=== PATIENT | female | born 1945 | race Caucasian/White ===

== ENCOUNTER → 2023-10-26 15:06 | Outpatient (REF) | payer BC, SELFPAY | LOC: HWEVLT 15:06 | PROVIDERS: ATTENDING PHYSICIAN Radiology Diagnostic Radiology | DX: I83.893 Varicose veins of bilateral lower extremities with other complications (principal) | CPT/HCPCS: 93970 ==

== ENCOUNTER → 2024-01-26 12:57 | Outpatient (REF) | payer BC, SELFPAY | LOC: HWEVLT 12:57 | PROVIDERS: ATTENDING PHYSICIAN Radiology Vascular & Interventional Radiology | DX: I83.892 Varicose veins of left lower extremity with other complications (principal) | CPT/HCPCS: 36478 ==

== ENCOUNTER → 2024-02-09 11:41 | Outpatient (REF) | payer BC, SELFPAY | LOC: HWEVLT 11:41 | PROVIDERS: ATTENDING PHYSICIAN Radiology Diagnostic Radiology | DX: I83.892 Varicose veins of left lower extremity with other complications (principal) | CPT/HCPCS: 93971 ==

== ENCOUNTER → 2024-05-02 12:59 | Outpatient (REF) | payer BC, SELFPAY | LOC: HWEVLT 12:59 | PROVIDERS: ATTENDING PHYSICIAN Radiology Vascular & Interventional Radiology | DX: I83.892 Varicose veins of left lower extremity with other complications (principal) | CPT/HCPCS: 93971 ==

== ENCOUNTER → 2024-08-17 16:46 | Outpatient (REF) | payer BC, SELFPAY | LOC: RAD 16:46 | PROVIDERS: ATTENDING PHYSICIAN Urology; FAMILY PHYSICIAN Physician Assistant | DX: R31.0 Gross hematuria (principal) | CPT/HCPCS: 74178; Q9967 ==

== ENCOUNTER 2024-08-24 06:15 | Day surgery (SDC) | payer BC, SELFPAY ==
[2024-08-18 08:43] LABS: Hematocrit 43.5 % (37.0-47.0); Hemoglobin 14.3 g/dL (12.0-16.0); Mean Corp Hgb Conc. 32.9 g/dL (33.0-37.0); Mean Corpuscular Hgb 31.6 pg (27.0-31.0); Mean Platelet Volume 10.6 fL (7.4-10.4); Platelet Count 220 10^3/uL (130-400); Red Blood Cell Count 4.53 10^6/uL (4.20-5.40); Red Cell Dist. Width 11.7 % (11.5-14.5); White Blood Cell Count 7.4 10^3/uL (4.8-10.8)
[2024-08-18 14:05] VITALS: BMI 25.0
[2024-08-24] VITALS (9 sets, daily range): BP systolic 141–164; BP diastolic 62–86; BMI 25.0
[2024-08-24] MEDS: CYSVIEW KIT 100 MG INTRAVES (09:32)
[2024-08-24] MEDS: NORMOSOL-R/PLASMALYTE-A 1000 IV (10:19)
[2024-08-24] MEDS: ZOFRAN 4 MG IV (13:30)
== END 2024-08-24 14:51 | disposition home or self-care (01) ==
LOC: SDS 06:15
PROVIDERS: ATTENDING PHYSICIAN Urology; FAMILY PHYSICIAN Physician Assistant; REFERRING PHYSICIAN Internal Medicine Cardiovascular Disease
DX: C67.1 Malignant neoplasm of dome of bladder (principal); C67.2 Malignant neoplasm of lateral wall of bladder; N30.80 Other cystitis without hematuria; N99.71 Accidental puncture and laceration of a genitourinary system organ or structure during a genitourinary system procedure; Y83.8 Other surgical procedures as the cause of abnormal reaction of the patient, or of later complication, without mention of misadventure at the time of the procedure
CPT/HCPCS: 52234; C9738; 88305; 88307; 36415; 85027; 93005; A9589

== ENCOUNTER 2024-10-04 04:25 | Observation (INO) | payer BC, SELFPAY ==
[2024-10-03 23:17] VITALS: BP 154/90
[2024-10-03 23:54] VITALS: BP 157/79; BMI 24.3
[2024-10-04] VITALS: BP 153/84
[2024-10-04 00:13] LABS: % Basophils 0.5 % (0-2); % Eosinophils 0.7 % (0-6); % Immature Granulocytes 0.2 % (0-0.5); % Lymphocytes 30.4 % (20.5-51.1); % Neutrophils 52.2 % (42.2-75.2); Absolute Lymphocytes 1.8 10^3/uL (1.2-3.4); Absolute Monocytes 0.9 10^3/uL (0.1-0.6); Absolute Neutrophils 3.1 10^3/uL (1.4-6.5); Hematocrit 40.7 % (37.0-47.0); Hemoglobin 13.6 g/dL (12.0-16.0); Mean Corp Hgb Conc. 33.4 g/dL (33.0-37.0); Mean Corpuscular Hgb 31.4 pg (27.0-31.0); Mean Platelet Volume 9.9 fL (7.4-10.4); Nucleated Red Blood Cells % 0 %; Platelet Count 193 10^3/uL (130-400); Red Blood Cell Count 4.33 10^6/uL (4.20-5.40); Red Cell Dist. Width 11.7 % (11.5-14.5); White Blood Cell Count 5.8 10^3/uL (4.8-10.8)
[2024-10-04 00:40] LABS: Troponin I < 0.012 ng/ml
[2024-10-04 00:44] LABS: ALT (SGPT) 22 U/L (0-35); AST (SGOT) 32 U/L (14-36); Albumin 4.1 g/dl (3.5-5.0); Alkaline Phosphatase 98 U/L (38-126); Blood Urea Nitrogen 23 mg/dl (7-17); Calcium 10.8 mg/dl (8.4-10.2); Carbon Dioxide 27 mmol/L (22-30); Chloride 105 mmol/L (98-107); Estimated Creatinine Clearance 53 ml/min; Glucose 103 mg/dl (70-99); Lipase 279 U/L (23-300); Potassium 3.5 mmol/L (3.5-5.1); Sodium 140 mmol/L (135-145); Total Bilirubin 0.7 mg/dl (0.2-1.3); Total Protein 6.5 g/dl (6.3-8.2); eGFR > 60.00
--- NOTE | 2024-10-04 00:59 | ED.GENMED ---
History of Present Illness
General
Chief Complaint: Cardiac Symptoms
Time Seen by Provider: 10/04/24 00:58
Past History
Past History
ED Past Medical History: Arrthythmia and HTN
ED Past Surgical History: None
Social History
Personal:
Living: with family
Course
Orders/Labs/Results
Orders:
Orders
10/03/24 23:06
ECG [Electrocardiogram (*1)] Urgent
Reason for Study: Chest Pain
EKG- Treatment ONCE
10/03/24 23:55
Cardiac Monitoring- Treatment ONCE
IV Insert/Care/Rem.- Treatment PRN
Complete Blood Count/With Diff Urgent
Comprehensive Metabolic Panel Urgent
Lipase Urgent
Troponin I Urgent
O2 Therapy [RESP] Urgent
Titrate/Wean O2 to maintain O2 sat greater than (%): 90
Special Instructions: Maintain sats >/=90%
Pulse Ox/spot Check [RESP] Urgent
Quantity: 1
Special Instructions: ON ROOM AIR
10/04/24 00:00
CR Chest - 2 Views Urgent
Reason For Exam: chest pain
Abnormal Lab Results
10/04/24
00:04
MCH 31.4 H pg
(27.0-31.0)
Absolute Monos (auto) 0.9 H 10^3/uL
(0.1-0.6)
Monocytes % 16.0 H %
(1.7-9.3)
BUN 23 H mg/dl
(7-17)
Glucose 103 H mg/dl
(70-99)
Calcium 10.8 H mg/dl
(8.4-10.2)
10/04/24 00:04
10/04/24 00:04
Vital Signs
Initial and Last Documented VS:
Initial Vital Signs
Temp Pulse Resp BP Pulse Ox
97.8 F 70 20 154/90 100
10/03/24 23:17 10/03/24 23:17 10/03/24 23:17 10/03/24 23:17 10/03/24 23:17
Last Documented Vital Signs
Temp Pulse Resp BP Pulse Ox
97.8 F 67 13 153/84 97
10/03/24 23:17 10/04/24 00:00 10/04/24 00:00 10/04/24 00:00 10/04/24 00:00
*Radiology
Radiology exam reviewed: preliminary read by ED provider (neg)
*Pulse Oximetry
Patient hypoxic: no
*EKG
Interpreted by ED Provider?: Yes
Interpretation: normal
Comparison EKG: no changes
Heart Rate: 67
Rate: normal
Rhythm: sinus
[place]: normal axis
Interval: normal interval
QRS Pattern: normal QRS
Ischemia: no ischemia
ED Attending Note
-
Portions of this chart may have been created with voice recognition software.� Occasional wrong word or��sound alike� substitutions may have occurred due to the inherent limitations of voice recognition software.
Discharge Plan
Departure
Prescriptions:
No Action
doxycycline hyclate 100 mg Capsule
100 mg PO DAILY
atorvastatin 20 mg Tablet
20 mg PO DAILY
calcium carbonate [Calcium 600] 600 mg calcium (1,500 mg) Tablet
600 mg PO BID
Ocuvite Tablet
1 tab PO BID
metoprolol tartrate 25 mg Tablet
25 mg PO PRN PRN (Reason: Afib)
hydrochlorothiazide 12.5 mg Tablet
12.5 mg PO DAILY
cholecalciferol (vitamin D3) [Vitamin D3] 50 mcg (2,000 unit) Tablet
50 mcg PO BID
Eliquis 5 mg Tablet
5 mg PO BID
Joint Health 40-10-5-3.3 mg Tablet
1 tab PO DAILY
Referrals:
Susan Jules PA-C [Family Provider] -
Interventions
Interventions:
*Risk Screen - Suicide Last Done: 10/03/24 23:17
*General Assessment Last Done: 10/03/24 23:53
*Neglect/Abuse Screening Last Done: 10/03/24 23:17
*ED- Fall Risk Assessment Last Done: 10/03/24 23:52
*ED COVID-19 Vaccine History Last Done: 10/03/24 23:52
ED- Pulmonary Assessment Last Done: 10/04/24 00:11
ED- Cardiac Assessment Last Done: 10/04/24 00:11
WQ-Jmwhkg-Gbxjwtwfhx Assessment Last Done: 10/04/24 00:11
Discharge Date and Time
Print Language: SRI LANKAN
[2024-10-04 02:21] VITALS: BP 187/80
--- NOTE | 2024-10-04 04:31 | HPS.HSE ---
Family Physician
-
Family Physician: Susan Jules
Chief Complaint
-
chest pain
History of Present Illness
This is 78-year-old female was past medical history significant for atrial fibrillation (proximal) on anticoagulation with Eliquis, hypertension, hyperlipidemia, recent bladder cystoscopy with resection of polyps, remote history of skin melanoma,
presenting to the emergency department with episode of chest pain.
Patient reports he has had intermittent chest pain since Wednesday. Initially she reported chest pressure that is lasting a few minutes and then resolving without any associated exertional nausea vomiting or diaphoresis. Today she was able to
exercise 15 minutes on a treadmill and then about 2 hours later she noted chest pain that was substernal and radiating across her chest bilaterally. There was no radiation to the jaws neck or shoulders. There was no radiation to the back. She
felt like this may be related to indigestion and she took some Tums without any relief. She reports the pain that was a 6 out of 10 and it has been persistent for several hours now. She denies any shortness of breath. She denies dyspnea on
exertion. She denies having any palpitations. Patient denies any recent cough fevers or chills. She has no known sick contacts and denies any recent travel. She denies any ankle swelling, calf tenderness.
On arrival in the emergency department she was afebrile, blood pressure was 153/84 with a pulse of 67 and oxygen saturation of 97% on room air. ECG with sinus rhythm and no acute ischemia. X-ray was negative for any acute intrathoracic process.
Troponin was less than 0.012
She has no leukocytosis, normal hemoglobin and platelet counts. Electrolytes BUN/creatinine were all in the normal range. LFTs were normal. Lipase was normal.
Medical History
Past Medical History
Past Medical History: Reports Arrhythmia (Proximal atrial fibrillation), HTN and Hypercholesterolemia
Past Surgical History: Reports Urological (Cystoscopy with polyp resection)
Social History
Tobacco: Non-smoker
Alcohol: Occasional
Drug: None
Personal:
Living: With Family
Employment: Retired
Family History
Family History: Not pertinent
Allergies / Home Medications
Allergies reflects when Allergies were last updated in [facility].
Home Medications with original date entered in [facility]
Allergy/Medication List:
Allergies
Allergy/AdvReac Type Severity Reaction Status Date / Time
No Known Allergies Allergy Verified 10/03/24 23:20
Home Medications
apixaban 5 mg tablet (Eliquis) 5 mg PO BID 08/17/24
atorvastatin 20 mg tablet 20 mg PO DAILY 08/17/24
calcium carbonate (Calcium 600) 600 mg PO BID 08/17/24
cartilage 40 mg-collagen II 10 mg-boron 5 mg-hyaluronate 3.3 mg tablet ([place]) 1 tab PO DAILY 08/17/24
cholecalciferol (vitamin D3) 50 mcg (2,000 unit) tablet (Vitamin D3) 50 mcg PO BID 08/17/24
doxycycline hyclate 100 mg capsule 100 mg PO DAILY 08/17/24
hydrochlorothiazide 12.5 mg tablet 12.5 mg PO DAILY 08/17/24
metoprolol tartrate 25 mg tablet 25 mg PO PRN PRN Afib 08/17/24
vitamin A-vitamin C-vit E-min tablet 1 tab PO BID 08/17/24
Review of Systems
-
History Source: Patient
Constitutional: Reports No Symptoms
EENT: Reports No Symptoms
Respiratory: Reports No Symptoms
Cardiac: Reports Chest Pain
Abdomen/GI: Reports No Symptoms
: Reports No Symptoms
Musculoskeletal: Reports No Symptoms
Skin: Reports No Symptoms
Neurological: Reports No Symptoms
Endocrine: Reports No Symptoms
Hematologic/Lymphatic: Reports No Symptoms
Psych: Reports No Symptoms
Physical Exam
Vital Signs
Vital Signs
Temp Pulse Resp BP Pulse Ox
97.8 F 69 21 187/80 97
10/03/24 23:17 10/04/24 02:21 10/04/24 02:21 10/04/24 02:21 10/04/24 02:21
Physical Exam
General: Well Developed, Well Nourished, No Apparent Distress and Comfortable
HEENT: NormoCephalic, Anicteric, Moist mucous membranes and Atraumatic
Respiratory: Clear
Cardiac: S1/S2 and Regular Rhythm; No Murmur, Rub, Gallop, Peripheral Edema or JVD
Breast: Deferred by me
GI: Soft, Non Tender, Non Distended and Normal Bowel Sounds
Rectal: Deferred by Provider
Genito-urinary: Deferred by me
Musculoskeletal: No Clubbing, No Cyanosis and No Edema
Skin: Warm and Dry
Neuro: AO x 3 and Nonfocal/grossly intact
Hematologic/Lymphatic: No Lymphadenopathy
Psych: Calm
Laboratory Results
-
10/04/24 00:04
10/04/24 00:04
Laboratory Results
Total Bilirubin 0.7 mg/dl (0.2-1.3) 10/04/24 00:04
AST 32 U/L (14-36) 10/04/24 00:04
ALT 22 U/L (0-35) 10/04/24 00:04
Alkaline Phosphatase 98 U/L (38-126) 10/04/24 00:04
Troponin I < 0.012 ng/ml 10/04/24 00:04
Lipase 279 U/L (23-300) 10/04/24 00:04
Data Reviewed
-
Medical Tests (Nuc Med, Echo, EKG etc): Image Personally Visualized and interpreted
Lab Data: Labs Reviewed by me
Old Records: Reviewed
Impression/Plan
-
IMPRESSION:
78-year-old past medical history of proximal atrial fibrillation on anticoagulation with Eliquis who presents to the emergency department with persistent substernal chest pain radiating across the chest bilaterally without associated vomiting
diaphoresis or nausea. Not associated with exertion and no known exacerbating or relieving factors. Suspect may be related to dyspepsia/GERD however cannot rule out ischemic process. Initial troponin is negative. Initial ECG is negative. Chest
x-ray is clear. Patient is compliant with anticoagulation.
Plan
Chest pain�atypical
�Admit to telemetry observation
�Cycle cardiac enzymes
�As needed nitroglycerin
�continue apixaban, continue statin,
�echocardiogram
�Lipid panel A1c
�Cardiology consult (patient of Dr. Leo)
Atrial fibrillation�currently in sinus rhythm
� Continue anticoagulation with Eliquis
� Patient is only on as needed rate control, will monitor for now
DVT prophylaxis�on apixaban
CODE STATUS�DNR
[2024-10-04 04:33] LABS: Troponin I < 0.012 ng/ml
[2024-10-04 04:35] VITALS: BP 163/83
[2024-10-04 04:36] VITALS: BMI 23.7
--- NOTE | 2024-10-04 04:37 | DOWNTIME ---
There was a [employer] Client [employer]cher Downtime on 10/04/2024 from 0100 to 10/05/2023 at 0420 . Downtime documentation of patient's care, including medication administrations, has been reconciled in the electronic record per guidelines. Refer to the
patient's paper chart under the miscellaneous tab to see printed paper medication records and downtime forms.
[2024-10-04 06:35] LABS: Blood Urea Nitrogen 19 mg/dl (7-17); Carbon Dioxide 28 mmol/L (22-30); Chloride 102 mmol/L (98-107); Estimated Creatinine Clearance 53 ml/min; Glucose 99 mg/dl (70-99); HDL Cholesterol 63 mg/dl; LDL Cholesterol, Calculated 29 mg/dl; Potassium 3.9 mmol/L (3.5-5.1); Sodium 139 mmol/L (135-145); Total Cholesterol 112 mg/dl (50-199); Triglyceride 103 mg/dl (10-149); Very Low Density Lipoprotein 20 mg/dl (0-30); eGFR > 60.00
[2024-10-04 06:47] LABS: Troponin I < 0.012 ng/ml
[2024-10-04 07:05] VITALS: BP 151/75
--- NOTE | 2024-10-04 07:50 | CON.CAR ---
Addendum entered and electronically signed by Mookie Polanco MD 10/04/24 14:22:
I saw and examined the patient.
The Central Supply Technician's note was reviewed and I agree with the note.
Comment: Briefly, 78-year-old woman past medical history of paroxysmal atrial fibrillation, PVCs and hyperlipidemia who presents after several days of waxing and waning chest discomfort. She describes sharp chest pain which seems to be worse after
eating that has been ongoing for approximately 5 days at this point. Has been able to workout on the treadmill on a daily basis without symptoms. Pain does not seem to be exertional by her description.
Serially undetectable troponin
ECG is not overtly ischemic appearing
Transthoracic echocardiogram with normal biventricular size and function and no significant valvular pathology
Pharmacologic nuclear stress test with no evidence of ischemia or prior infarct
Patient is stable for discharge from my perspective
Already has follow-up scheduled with primary stringed instrument tuner, CELIA Leo, for later this week
Original Note:
Consultation
Consultation Request
Date/Time Consultation Performed: 10/04/24
Requesting Provider: Dr. Nevarez
Performing Provider: Shena Gomez PA-C for Dr. Polanoc
Reason for Consultation: CP
Medical History
-
Chief Complaint: CP
History of Present Illness:
Patient is a 78-year-old female with past medical history of paroxysmal atrial fibrillation on Eliquis, hypertension, hypercholesterolemia, PVCs who underwent bladder surgery 08/2024 for polyps. She reports during surgery her 'bladder wall was
nicked', and this has resulted in residual burning discomfort and urinary issues. She reports she had a catheter for 10 days, and then had multiple courses of antibiotics as well as oxybutynin chloride for bladder spasms. She reports started
Wednesday after dinner she noticed chest pressure and feelings of indigestion which since that time have been intermittently occurring. She states the episodes appear to be random and it feels as though she needs to belch however when she does, does
not get complete relief. She does exercise on the treadmill daily and does daily stretches and has not had issues with completing her normal levels of activity. She reports she stopped taking her urologic medicines on Wednesday without improvement.
She reports once she took tums with some improvement however then several hours later it returned. Trops negative. Cardiology consulted for evaluation. Remains with some discomfort at present. She had low risk stress test and echo in 2022.
PMH:
PAF on eliquis
HTN
HLD
PVCs
bladder polyps s/p resection 08/2024
OA
Past Medical History
Past Medical History: Other (in HPI)
Social History
Tobacco: Non-Smoker
Alcohol: None
Personal:
Living: With Family
Employment: Retired
Family History
Family History: Early CAD (in father) and Other (CVA in father)
Allergies / Home Medications
Allergy/AdvReac Type Severity Reaction Status Date / Time
No Known Allergies Allergy Verified 10/03/24 23:20
�Medication �Instructions �Recorded �Confirmed �Type
apixaban 5 mg tablet (Eliquis) 5 mg PO BID 08/17/24 10/04/24 History
atorvastatin 20 mg tablet 20 mg PO DAILY 08/17/24 10/04/24 History
calcium carbonate (Calcium 600) 600 mg PO BID 08/17/24 10/04/24 History
cartilage 40 mg-collagen II 10 1 tab PO DAILY 08/17/24 10/04/24 History
mg-boron 5 mg-hyaluronate 3.3 mg
tablet (Joint Health)
cholecalciferol (vitamin D3) 50 50 mcg PO BID 08/17/24 10/04/24 History
mcg (2,000 unit) tablet (Vitamin
D3)
doxycycline hyclate 100 mg capsule 100 mg PO DAILY 08/17/24 10/04/24 History
hydrochlorothiazide 12.5 mg tablet 12.5 mg PO DAILY 08/17/24 10/04/24 History
metoprolol tartrate 25 mg tablet 25 mg PO PRN PRN Afib 08/17/24 10/04/24 History
vitamin A-vitamin C-vit E-min 1 tab PO BID 08/17/24 10/04/24 History
tablet
Review of Systems
-
History Source: Patient
All other systems: Negative unless noted
Physical Exam
Vital Signs
Temp Pulse Resp BP Pulse Ox
98.0 F 67 20 163/83 98
10/04/24 04:35 10/04/24 04:35 10/04/24 04:35 10/04/24 04:35 10/04/24 04:35
Lab Results
10/04/24 00:04
10/04/24 05:48
Troponin I < 0.012 ng/ml 10/04/24 05:48
Physical Exam
General: No Apparent Distress and Comfortable
HEENT: Normocephalic, Anicteric and Moist Mucous Membranes
Respiratory: Clear and Non Labored Respirations
Cardiac: S1/S2, Regular Rhythm and Murmur
GI: Soft and Non Tender
Musculoskeletal: No Clubbing, No Cyanosis and No Edema
Skin: Warm and Dry
Neuro: AO x 3
Impression / Plan
-
Primary Animal Chiropractor: Dr. CELIA Loe
Assessment:
Presentation with CP
Serially negative troponins
PAF on eliquis
HTN
HLD
PVCs
bladder polyps s/p resection 08/2024
OA
ECHO 10/29/22: EF 55-60%, mild TR, PAP 25-30mmHg
Stress echo 10/29/22: low risk test at 7 METS
Plan:
-Patient presents with intermittent chest discomfort since this past Wednesday evening 09/29.
-EKG NSR
-CXR without acute processes
-troponins serially negative
-last echo and stress test from 10/2022 as above
-could consider for lexiscan stress test today, NPO for now, however symptoms appear atypical for cardiac etiology
-consider trial of PPI/GI cocktail. of note, she was on multiple courses of abx recently. she has noted history of GERD however is not on medication for this as OP
-will arrange OP cardiac follow up
Data Reviewed
-
EKG: Tracing Personally Visualized and interpreted
Radiology: Report Reviewed by me
Medical Tests (Nuc Med, Echo etc): Report Reviewed by me
Labs: Labs Reviewed by me
Old Records: Reviewed
[2024-10-04] MEDS: ELIQUIS 5 MG PO (08:08)
[2024-10-04] MEDS: VIBRAMYCIN 100 MG PO (08:08)
[2024-10-04] MEDS: MAALOX 30 ML PO ×2 (08:08→17:08)
[2024-10-04] MEDS: LIPITOR 20 MG PO (08:09)
[2024-10-04] MEDS: ORETIC 12.5 MG PO (08:09)
[2024-10-04 09:46] LABS: Troponin I < 0.012 ng/ml
[2024-10-04 10:00] LABS: Glycohemoglobin (HgbA1c) 5.6 % (4.0-5.6)
[2024-10-04] MEDS: LEXISCAN 0.4 MG IV (12:10)
--- NOTE | 2024-10-04 13:59 | CM ---
Addendum entered by Dalila Covarrubias 10/04/24 14:48:
[facility] form explained & signed.
Original Note:
Patient seen at bedside
Echo & stress test today
IA completed
Patient lives in split level home with spouse, 0 steps through garage, flight stairs bedroom
PLOF: Independent does not use assistive device
DME: [facility]
Denies VN, has had outpatient PT in past
PCP: Susan Jules
Pharmacy: [address], [place]
PLAN: home, no needs
to transport
--- NOTE | 2024-10-04 14:02 | W.PN.HOSP.TC ---
Today's Communication/Plan
-
Discharge
Assessment / Plan
Assessment / Plan
Gen-AAOx3, NAD
HEENT-NC, AT, anicteric, clear oral mm
Neck-supple
CV-reg, no M, +S1/S2
Lungs-clear B/L
Abd-soft, NT, ND
Ext-no edema
Musculoskeletal-no cyanosis, clubbing
Skin-warm and dry
Neuro-grossly non-focal
Psych-calm, cooperative
Chest discomfort -ACS unlikely, [place] ruled out. Suspect GI related, possible acid reflux. She does exercise on a treadmill twice daily without exertional chest pain or shortness of breath.
Echocardiogram reviewed, LVEF 55%, normal diastolic function, normal RV size and function, mild MR, mild TR.
Nuclear stress test reviewed, no perfusion defects.
Troponins negative.
Reviewed with cardiology, plan to discharge today with outpatient follow-up recommended.
Paroxysmal atrial fibrillation -continue Eliquis.
Hyperlipidemia -atorvastatin.
Essential hypertension
PVCs
Bladder polyps -resected in August.
Chronic rosacea -on long-term doxycycline.
DNR
Dispo -stable for discharge home today. Follow-up with PCP and cardiology.
32 minutes spent in discharge process.
Anticipated Discharge: Today
Subjective/Interval History
-
Date of Service: October 04, 2024
Patient seen and examined. No complaints.
Objective Data
-
Labs:
Laboratory Results
10/04/24
05:48
Sodium 139
Potassium 3.9
Chloride 102
Carbon Dioxide 28
BUN 19 H
Creatinine 0.8
Glucose 99
Calcium 10.0
Vital Signs:
Vital Signs
Temp Pulse Resp BP Pulse Ox
98.0 F 53 14 151/75 98
10/04/24 07:05 03/19/25 07:05 10/04/24 07:05 10/04/24 07:05 10/04/24 09:52
Review of Systems
-
History Source: Patient
All other systems: Reviewed and negative
--- NOTE | 2024-10-04 14:10 | W.DS.TRANS ---
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
-
Discharge Instructions:
Discharge Diagnosis/Procedures Chest pressure
Diet Low Fat,Low Cholesterol
Activity As tolerated
Driving Restrictions As prior to admission
Bathing Restrictions None
Instructions:
Stand-Alone Forms:
Changes to Home Medications: No
Discharge Medications:
DC Medications w/original date entered in [facility]
apixaban 5 mg tablet (Eliquis) 5 mg PO BID 08/17/24
atorvastatin 20 mg tablet 20 mg PO DAILY 08/17/24
calcium carbonate (Calcium 600) 600 mg PO BID 08/17/24
cartilage 40 mg-collagen II 10 mg-boron 5 mg-hyaluronate 3.3 mg tablet ([place]) 1 tab PO DAILY 08/17/24
cholecalciferol (vitamin D3) 50 mcg (2,000 unit) tablet (Vitamin D3) 50 mcg PO BID 08/17/24
doxycycline hyclate 100 mg capsule 100 mg PO DAILY 08/17/24
hydrochlorothiazide 12.5 mg tablet 12.5 mg PO DAILY 08/17/24
metoprolol tartrate 25 mg tablet 25 mg PO PRN PRN Afib 08/17/24
vitamin A-vitamin C-vit E-min tablet 1 tab PO BID 08/17/24
pantoprazole 40 mg tablet,delayed release (Protonix) 40 mg PO DAILY #30 tabs 10/04/24
Home Medication Changes
Pending Results: No
[2024-10-04 15:05] VITALS: BP 135/81
[2024-10-05 18:58] LABS: Hepatitis C Antibody Negative (Negative)
== END 2024-10-04 18:28 | disposition home or self-care (01) ==
LOC: 2 NORTH 04:25
PROVIDERS: Student in an Organized Health Care Education/Training Program; ADMITTING PHYSICIAN Internal Medicine; ATTENDING PHYSICIAN Hospitalist; CONSULT PHYSICIAN Internal Medicine Cardiovascular Disease; EMERGENCY PHYSICIAN Emergency Medicine; FAMILY PHYSICIAN Physician Assistant
DX: R07.9 Chest pain, unspecified (principal); Z01.810 Encounter for preprocedural cardiovascular examination; R07.2 Precordial pain; Z79.01 Long term (current) use of anticoagulants; I10 Essential (primary) hypertension; Z85.820 Personal history of malignant melanoma of skin; Z66 Do not resuscitate; I48.0 Paroxysmal atrial fibrillation; I49.3 Ventricular premature depolarization; Z79.2 Long term (current) use of antibiotics; L71.9 Rosacea, unspecified; I08.1 Rheumatic disorders of both mitral and tricuspid valves; I25.10 Atherosclerotic heart disease of native coronary artery without angina pectoris; M19.90 Unspecified osteoarthritis, unspecified site; Z82.49 Family history of ischemic heart disease and other diseases of the circulatory system
CPT/HCPCS: 71046; 78452; 80048; 80053; 80061; 83036; 83690; 84484; 85025; 86803; 93005; 93017; 93306; 99285; A9500; G0378; J2785

== ENCOUNTER 2024-10-17 20:30 | Emergency (ER) | payer BC, SELFPAY ==
[2024-10-17 20:36] VITALS: BP 182/95
--- NOTE | 2024-10-17 20:45 | ED.GENMED ---
History of Present Illness
General
Chief Complaint: Catheter/Tube Problem
Time Seen by Provider: 10/17/24 20:45
History of Present Illness
History of Present Illness:
TIME OF INITIAL ENCOUNTER:
HPI: The patient presents due to concerns with her Moser catheter. She had a new Moser catheter placed by Dr. Lopez today during cystoscopy. 2 months ago, she was found to have lesions that are concerning for malignancy in the bladder. At that
time she required Moser catheter for about 10 days. She has intermittently had bladder spasms.
EXAM:
GENERAL: Well appearing in no distress, appears very comfortable
HEENT: Moist oral mucosa
ABDOMEN: Soft with no peritoneal signs, no tenderness, Moser catheter draining orange urine (she is on Pyridium)
NEUROLOGIC: Excellent strength all extremities, no coordination deficits
PSYCHIATRIC: Appropriate mental status, normal insight and judgement
EXTREMITIES: Nontender, no edema, moves all extremities equally
SKIN: No rash, no lesions
NUMBER AND COMPLEXITY OF PROBLEMS ADDRESSED AT THE ENCOUNTER
� Chronic conditions affecting care: Bladder lesions, A-fib on Eliquis, high blood pressure
� Acute Exacerbation and/or Progression of Chronic Illness: This is an acute problem
� Differential Diagnosis includes: Moser catheter malfunction, obstructing hematuria
AMOUNT AND/OR COMPLEXITY OF DATA TO BE REVIEWED AND ANALYZED
� I performed an independent evaluation of and my interpretation is:
EKG:
CT:
X-rays:
Laboratory Studies:
Other:
� Review of other/old records: The patient was seen here with chest discomfort a few weeks ago
� Clinical information was obtained by an independent historian: I spoke to at bedside
� Prescriptions/Medications Considered but not given:
� Further testing considered but not performed: No clear indication for lab work
RISK OF COMPLICATIONS AND/OR MORBIDITY OR MORTALITY OF PATIENT MANAGEMENT
� Social determinants of health affecting care:
� Discussion with other providers:
� Escalation of care including admission/observation vs risk of discharge considered: The charge nurse had initially told me that Dr. Adams called in indicating that he wanted us to change to either 16 or 18 [place] Moser
catheter. This was performed by the ER nurse in 1 attempt without any difficulty. She is to follow-up with urology as she still has some bladder spasm but has failed several medications in the past.
ANY OTHER UPDATES:
Past History
Past History
ED Past Medical History: Arrthythmia and HTN
ED Past Surgical History: Tonsilectomy, Urological and Other (Melanoma)
Social History
Personal:
Living: with family
Phy Exam
Physical Exam
Physical Exam:
See HPI
Course
Vital Signs
Initial and Last Documented VS:
Initial Vital Signs
Temp Pulse Resp BP Pulse Ox
37.1 C 90 17 182/95 99
10/17/24 20:36 10/17/24 20:36 10/17/24 20:36 10/17/24 20:36 10/17/24 20:36
Last Documented Vital Signs
Temp Pulse Resp BP Pulse Ox
37.1 C 90 17 182/95 99
10/17/24 20:36 10/17/24 20:36 10/17/24 20:36 10/17/24 20:36 10/17/24 20:36
*Critical Care Note
Total Time (30-74mins, 75-104mins- exclusive of procedures): Not Applicable
ED Attending Note
-
Portions of this chart may have been created with voice recognition software.� Occasional wrong word or��sound alike� substitutions may have occurred due to the inherent limitations of voice recognition software.
Discharge Plan
Departure
Patient Disposition: Home (Routine Discharge)
Date of Disposition: 10/17/24
Time of Disposition: 21:12
Patient with high blood pressure during this ER visit?: Yes
Discharge Problem:
Malfunction of Moser catheter
Instructions: How to Care for Your Moser Catheter, BLOOD PRESSURE
Prescriptions:
No Action
doxycycline hyclate 100 mg Capsule
100 mg PO DAILY
atorvastatin 20 mg Tablet
20 mg PO DAILY
calcium carbonate [Calcium 600] 600 mg calcium (1,500 mg) Tablet
600 mg PO BID
vitamin A-vitamin C-vit E-min Tablet
1 tab PO BID
metoprolol tartrate 25 mg Tablet
25 mg PO PRN PRN (Reason: Afib)
hydrochlorothiazide 12.5 mg Tablet
12.5 mg PO DAILY
cholecalciferol (vitamin D3) [Vitamin D3] 50 mcg (2,000 unit) Tablet
50 mcg PO BID
Eliquis 5 mg Tablet
5 mg PO BID
[facility] 40-10-5-3.3 mg Tablet
1 tab PO DAILY
pantoprazole [Protonix] 40 mg tablet,delayed release (DR/EC)
40 mg PO DAILY Qty: 30 0RF
Referrals:
Jaswinder Adams MD [Active] - Keep scheduled appt
UNKNOWN - PT DOES,NOT KNOW [Family Provider] -
Activity Restrictions/Additional Instructions:
We placed a new 18 [place] Moser catheter. Please follow-up with your urologist. Return here if worse or other concerns.
Interventions
Interventions:
*Risk Screen - Suicide Last Done: 10/17/24 20:37
*General Assessment Last Done: 10/17/24 20:37
*Neglect/Abuse Screening Last Done: 10/17/24 20:37
*ED COVID-19 Vaccine History Last Done: 10/17/24 20:37
Discharge Date and Time
Print Language: PORTUGUESE
[2024-10-17 21:17] VITALS: BMI 24.8
[2024-10-17 21:27] VITALS: BP 126/65
[2024-10-17 21:28] VITALS: BP 126/65
== END 2024-10-17 21:27 | disposition home or self-care (01) ==
LOC: EMR 20:30
PROVIDERS: EMERGENCY PHYSICIAN Emergency Medicine
DX: Z46.6 Encounter for fitting and adjustment of urinary device (principal); N32.89 Other specified disorders of bladder; I10 Essential (primary) hypertension; I48.91 Unspecified atrial fibrillation; Z79.01 Long term (current) use of anticoagulants
CPT/HCPCS: 51702; 99283

== ENCOUNTER 2024-10-22 01:29 | Emergency (ER) | payer BC, SELFPAY ==
[2024-10-22 01:45] VITALS: BP 183/71
[2024-10-22 02:19] VITALS: BMI 23.6
--- NOTE | 2024-10-22 02:25 | ED.GENMED ---
History of Present Illness
General
Chief Complaint: Catheter/Tube Problem
Source: patient
Exam Limitations: none
Time Seen by Provider: 10/22/24 02:08
History of Present Illness
History of Present Illness:
See MDM
Past History
Past History
ED Past Medical History: Arrthythmia and HTN
ED Past Surgical History: Tonsilectomy, Urological and Other (Melanoma)
Social History
Personal:
Living: with family
Phy Exam
Physical Exam
Physical Exam:
See MDM
Course
Vital Signs
Initial and Last Documented VS:
Initial Vital Signs
Temp Pulse BP Pulse Ox
97.9 F 74 183/71 98
10/22/24 01:45 10/22/24 01:45 10/22/24 01:45 10/22/24 01:45
Last Documented Vital Signs
Temp Pulse BP Pulse Ox
97.9 F 74 110/56 95
10/22/24 01:45 10/22/24 01:45 10/22/24 02:48 10/22/24 02:24
MDM/Problems Addressed
Differential Diagnosis Includes:
HPI and MDM Narrative:
78-year-old female presenting with bladder spasms. Patient recently had a catheter placed earlier in the week. She follows with urology. She recently had polyps removed. On follow-up cystoscopy, she was found to have some sort of calcifications
in her bladder, per patient. The catheter was placed to 'relax the bladder'. Patient states that the bladder spasms have worsened and she is noticing urine coming out around the catheter site. She was on bladder spasm medicine in the past but did
not like the side effects. She was concerned mostly about the constipation
Physical exam
General: Well appearing and non-toxic
HEENT: protecting airway
Neck: appears supple
CV: No evidence of cyanosis
Resp: No accessory muscle use
Abd: Non-distended. Soft and nontender. Moser catheter site clean and intact
Extremities: No deformities
Neuro: alert
Psych: Normal affect
Skin: Intact
Problems Addressed including Acute and Chronic Conditions affecting care:
1. Bladder spasm
Acuity: acute
Prognosis: stable
Details: We discussed going back on her bladder spasm medication and starting to take a stool softener and intermittent MiraLAX to counteract the constipation
Updates
The balloon on the catheter was deflated and filled back up. The cath was readjusted and flushed. There was removal of sediment and small clots and the catheter bag started draining again
Differential Diagnosis (but not limited to): Bladder spasm, clogged catheter
Testing considered: Urinalysis
Drug therapy (if applicable): OTC meds, please see d/c instruction regarding Rx drugs
Amount and/or Complexity of Data Reviewed
Clinical info obtained from: Patient
External data reviewed: N/A
Labs I independently reviewed (but not limited to): N/A
Radiology: N/A
Pulse Ox: not hypoxic
EKG independently reviewed: N/A
Mortar Mixer: N/A
Critical Care: N/A
Risk of Complication:
Social Determinants of health: Good social support
Discussed with other providers: N/A
Escalation of Care includes Admit/Obs: After being observed in the Emergency Department, pt stable for discharge.
Occasional wrong word or 'sound a like' substitutions may have occurred due to the inherent limitations of voice recognition software. Read the chart carefully and recognize, using context, where substitutions have occurred.
*Critical Care Note
Total Time (30-74mins, 75-104mins- exclusive of procedures): Not Applicable
ED Attending Note
-
Portions of this chart may have been created with voice recognition software.� Occasional wrong word or��sound alike� substitutions may have occurred due to the inherent limitations of voice recognition software.
Discharge Plan
Departure
Patient Disposition: Home (Routine Discharge)
Date of Disposition: 10/22/24
Time of Disposition: 03:29
Patient with high blood pressure during this ER visit?: No
Discharge Problem:
Bladder spasms
Prescriptions:
No Action
doxycycline hyclate 100 mg Capsule
100 mg PO DAILY
atorvastatin 20 mg Tablet
20 mg PO DAILY
calcium carbonate [Calcium 600] 600 mg calcium (1,500 mg) Tablet
600 mg PO BID
vitamin A-vitamin C-vit E-min Tablet
1 tab PO BID
metoprolol tartrate 25 mg Tablet
25 mg PO PRN PRN (Reason: Afib)
hydrochlorothiazide 12.5 mg Tablet
12.5 mg PO DAILY
cholecalciferol (vitamin D3) [Vitamin D3] 50 mcg (2,000 unit) Tablet
50 mcg PO BID
Eliquis 5 mg Tablet
5 mg PO BID
Joint Health 40-10-5-3.3 mg Tablet
1 tab PO DAILY
pantoprazole [Protonix] 40 mg tablet,delayed release (DR/EC)
40 mg PO DAILY Qty: 30 0RF
Referrals:
Susan Jules PA-C [Family Provider] -
Activity Restrictions/Additional Instructions:
Please return for any worsening symptoms.
You may return at any time if you have further concerns.
Please follow up with your urologist at the first available appointment, preferably this week.
It is worth cutting back on your bladder spasm medication. To avoid constipation, please take stool softeners daily and intermittent laxatives.
Thank you for choosing [facility].
Interventions
Interventions:
*Risk Screen - Suicide Last Done: 10/22/24 02:19
*General Assessment Last Done: 10/22/24 02:19
*Neglect/Abuse Screening Last Done: 10/22/24 02:19
*ED- Fall Risk Assessment Last Done: 10/22/24 02:19
*ED COVID-19 Vaccine History Last Done: 10/22/24 02:19
[facility]-Bewfsw-Xqfldaclje Assessment Last Done: 10/22/24 02:19
ED-Female Genitourinary Assessment Last Done: 10/22/24 02:19
Discharge Date and Time
Print Language: LEBANESE
[2024-10-22 02:48] VITALS: BP 110/56
[2024-10-22 03:00] VITALS: BP 139/60
[2024-10-22 04:00] VITALS: BP 123/60
== END 2024-10-22 04:24 | disposition home or self-care (01) ==
LOC: EMR 01:29
PROVIDERS: EMERGENCY PHYSICIAN Student in an Organized Health Care Education/Training Program; FAMILY PHYSICIAN Physician Assistant
DX: N32.89 Other specified disorders of bladder (principal); K59.00 Constipation, unspecified; I10 Essential (primary) hypertension; M19.90 Unspecified osteoarthritis, unspecified site; I48.91 Unspecified atrial fibrillation; E78.5 Hyperlipidemia, unspecified; Z98.890 Other specified postprocedural states; Z85.820 Personal history of malignant melanoma of skin; Z86.16 Personal history of COVID-19; Z79.01 Long term (current) use of anticoagulants
CPT/HCPCS: 99283; 51798

== ENCOUNTER → 2024-11-01 07:52 | Outpatient (REF) | payer BC, SELFPAY | LOC: RAD 07:52 | PROVIDERS: ATTENDING PHYSICIAN Urology; FAMILY PHYSICIAN Physician Assistant | DX: N99.72 Accidental puncture and laceration of a genitourinary system organ or structure during other procedure (principal) | CPT/HCPCS: 72192; 72194; Q9967 ==

== ENCOUNTER 2024-11-17 18:02 | Emergency (ER) | payer BC, SELFPAY ==
[2024-11-17 18:05] VITALS: BP 156/111
--- NOTE | 2024-11-17 22:02 | ED.GENMED ---
History of Present Illness
General
Chief Complaint: DVT/Possible Blood Clot
Time Seen by Provider: 11/17/24 22:02
History of Present Illness
History of Present Illness:
TIME OF INITIAL ENCOUNTER: 10:05 PM
HPI: The patient presents with bilateral lower extremity achiness. She has had complications from a bladder surgery in which 'they nicked my bladder'. She has had problems with hematuria and was on and off Eliquis for history of A-fib. She has no
swelling in the lower extremities. She is on atorvastatin.
EXAM:
GENERAL: Well appearing in no distress
HEENT: Moist oral mucosa
CARDIOVASCULAR: No murmurs, normal heart rate, regular rhythm with periods of irregularity, No chest wall tenderness
PULMONARY: No respiratory distress, breath sounds are clear and equal
ABDOMEN: Soft with no peritoneal signs, no tenderness
NEUROLOGIC: Excellent strength all extremities, no coordination deficits
PSYCHIATRIC: Appropriate mental status, normal insight and judgement
EXTREMITIES: No muscle tenderness to the lower extremities bilaterally, varicosities noted, no swelling, excellent DP pulses bilaterally
SKIN: No rash, no lesions
NUMBER AND COMPLEXITY OF PROBLEMS ADDRESSED AT THE ENCOUNTER
� Chronic conditions affecting care: A-fib, high blood pressure, hyperlipidemia
� Acute Exacerbation and/or Progression of Chronic Illness: This is an acute problem
� Differential Diagnosis includes: Statin induced leg pain, DVT, superficial phlebitis, varicosities, neuropathic pain
AMOUNT AND/OR COMPLEXITY OF DATA TO BE REVIEWED AND ANALYZED
� I performed an independent evaluation of and my interpretation is:
EKG:
CT:
X-rays:
Laboratory Studies:
Other: Ultrasound shows no evidence of DVT bilaterally
� Review of other/old records: The patient was seen here 1 month ago with bladder spasms and just over a month ago with Moser catheter malfunction
� Clinical information was obtained by an independent historian: I spoke to the at bedside
� Prescriptions/Medications Considered but not given: We considered Neurontin however ultimately decided to just hold the atorvastatin for now
� Further testing considered but not performed: Considered lab work but did not ultimately perform
RISK OF COMPLICATIONS AND/OR MORBIDITY OR MORTALITY OF PATIENT MANAGEMENT
� Social determinants of health affecting care: Lives at home
� Discussion with other providers:
� Escalation of care including admission/observation vs risk of discharge considered: The patient has bilateral lower extremity pain but a relatively unremarkable exam. Of note she is on atorvastatin. She has no sign of DVT by
ultrasound and her arterial pulses are excellent. We will have her hold the atorvastatin for now.
ANY OTHER UPDATES:
Past History
Past History
ED Past Medical History: Arrthythmia and HTN
ED Past Surgical History: Tonsilectomy, Urological and Other (Melanoma)
Social History
Personal:
Living: with family
Phy Exam
Physical Exam
Physical Exam:
See HPI
Course
Orders/Labs/Results
Orders:
Orders
11/17/24 18:08
Venous Doppler Lwr Ext Bilat [US Periph Venous LOWER Ext Portillo] Urgent
Comment:
Reason For Exam: B/L LE Pain
Vital Signs
Initial and Last Documented VS:
Initial Vital Signs
Temp Pulse Resp BP Pulse Ox
36.9 C 66 18 156/111 96
11/17/24 18:05 11/17/24 18:05 11/17/24 18:05 11/17/24 18:05 11/17/24 18:05
Last Documented Vital Signs
Temp Pulse Resp BP Pulse Ox
36.9 C 66 18 156/111 96
11/17/24 18:05 11/17/24 18:05 11/17/24 18:05 11/17/24 18:05 11/17/24 18:05
*Critical Care Note
Total Time (30-74mins, 75-104mins- exclusive of procedures): Not Applicable
ED Attending Note
-
Portions of this chart may have been created with voice recognition software.� Occasional wrong word or��sound alike� substitutions may have occurred due to the inherent limitations of voice recognition software.
Discharge Plan
Departure
Patient Disposition: Home (Routine Discharge)
Date of Disposition: 11/17/24
Time of Disposition: 22:16
Patient with high blood pressure during this ER visit?: Yes
Discharge Problem:
Bilateral leg pain
Prescriptions:
No Action
doxycycline hyclate 100 mg Capsule
100 mg PO DAILY
atorvastatin 20 mg Tablet
20 mg PO DAILY
calcium carbonate [Calcium 600] 600 mg calcium (1,500 mg) Tablet
600 mg PO BID
vitamin A-vitamin C-vit E-min Tablet
1 tab PO BID
metoprolol tartrate 25 mg Tablet
25 mg PO PRN PRN (Reason: Afib)
hydrochlorothiazide 12.5 mg Tablet
12.5 mg PO DAILY
cholecalciferol (vitamin D3) [Vitamin D3] 50 mcg (2,000 unit) Tablet
50 mcg PO BID
Eliquis 5 mg Tablet
5 mg PO BID
Joint Health 40-10-5-3.3 mg Tablet
1 tab PO DAILY
pantoprazole [Protonix] 40 mg tablet,delayed release (DR/EC)
40 mg PO DAILY Qty: 30 0RF
Referrals:
Susan Jules PA-C [Family Provider] -
Activity Restrictions/Additional Instructions:
The ultrasound shows no sign of blood clots. I can feel excellent pulses in your feet indicating that there is no sign of arterial blockages in your legs. Atorvastatin can commonly cause pain in the legs. I recommend to hold the atorvastatin for
the next week and helps your pain. Follow-up with your primary care doctor and clarification operator as well. Return here if worse or other concerns.
Interventions
Interventions:
*Risk Screen - Suicide Last Done: 11/17/24 18:05
*General Assessment Last Done: 11/17/24 18:05
*Neglect/Abuse Screening Last Done: 11/17/24 18:05
ED- Cardiac Assessment Last Done: 11/17/24 21:17
ED- Pulmonary Assessment Last Done: 11/17/24 21:17
ED-Peripheral Vascular Assessment Last Done: 11/17/24 21:17
Discharge Date and Time
Print Language: M[place]ENEGR[place]
[2024-11-17 22:30] VITALS: BP 158/85
== END 2024-11-17 22:43 | disposition home or self-care (01) ==
LOC: EMR 18:02
PROVIDERS: EMERGENCY PHYSICIAN Emergency Medicine; FAMILY PHYSICIAN Physician Assistant
DX: M79.605 Pain in left leg (principal); M79.604 Pain in right leg; I48.91 Unspecified atrial fibrillation; I10 Essential (primary) hypertension
CPT/HCPCS: 99284; 93970